=== PATIENT | male | born 1990 | race Caucasian/White ===

== ENCOUNTER 2018-03-31 18:54 | Emergency (ER) | payer BC, MEDICAID ==
--- NOTE | 2018-03-31 20:46 | EDM.PDOC ---
ED HPI GENERAL MEDICAL PROBLEM - General Chief Complaint: Flank Pain Stated Complaint: L SIDE Time Seen by Provider: 03/31/18 20:01 Source of Information: Reports: Patient (thrown offf a horse about 1 week ago. landed on left side. He ahs increasing pain in left ribs in left mid-axillary line. 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 ED EXAM, GENERAL - Physical Exam Exam: See Below Exam Limited By: No Limitations General Appearance: Alert, WD/WN, Mild Distress Respiratory/Chest: Lungs Clear, Other (very tender in left mid-axillary line at about nipple level). No: Respiratory Distress Cardiovascular: Regular Rate, Rhythm Neurological: Alert, Oriented Psychiatric: Normal Affect Skin Exam: Warm, Dry, Intact Course - Vital Signs Last Recorded V/S: Last Vital Signs Temp 36.9 C 03/31/18 19:42 Pulse 70 03/31/18 19:42 Resp 18 03/31/18 19:42 BP 148/95 H 03/31/18 19:42 Pulse Ox 98 03/31/18 19:42 - Orders/Labs/Meds Orders: Active Orders 24 hr Category Date Time Status Ribs 2V w Chest Lt [CR] Stat Exams 03/31/18 20:09 Taken - Radiology Interpretation Free Text/Narrative:: Josué ribs/chest: normal heart size and lung markings. No pneumo. Ribs intact. Departure - Departure Time of Disposition: 20:44 Disposition: Home, Self-Care 01 Condition: Fair Clinical Impression: Chest wall injury - Discharge Information Referrals: PCP,None [Primary Care Provider] - Forms: ED Department Discharge Additional Instructions: There could be a cracked rib but there are no visible fractures or breaks. The soreness will last for another 2 weeks or so. A combination of tyelenol and ibuprofen will give fairly good pain relief. - My Orders Last 24 Hours: My Active Orders 03/31/18 20:09 Ribs 2V w Chest Lt [CR] Stat - Assessment/Plan Last 24 Hours: My Active Orders 03/31/18 20:09 Ribs 2V w Chest Lt [CR] Stat
--- NOTE | 2018-04-03 08:35 | CR ---
Ribs 2V w Chest Lt CLINICAL HISTORY: Left rib pain, fall FINDINGS: There is no acute fracture within the ribs. No destructive changes are seen. There is no fo abbie pleural thickening or obvious effusion. IMPRESSION: Negative left ribs.
== END 2018-03-31 21:05 | disposition home or self-care (01) ==
LOC: JP.ED 18:54
DX: S29.9XXA Unspecified injury of thorax, initial encounter (principal); V80.010A Animal-rider injured by fall from or being thrown from horse in noncollision accident, initial encounter
CPT/HCPCS: 71101-26-LT; 71101-LT; 99284